=== PATIENT | male | born 1995 | race Caucasian/White ===

== ENCOUNTER → 2019-06-22 09:55 | Outpatient (CLI) | payer SELFPAY ==
[2019-06-22 11:50] LABS: Urine N gonorrhoeae NOT DETECTED
[2019-06-25 09:22] LABS: Urine Chlamydia DETECTED
== END ==
PROVIDERS: Visit Provider Physician Assistant
DX: R30.0 Dysuria (principal); R36.9 Urethral discharge, unspecified
CPT/HCPCS: 87491; 87591

== ENCOUNTER → 2020-01-18 08:41 | Outpatient (CLI) | payer SELFPAY | PROVIDERS: Visit Provider Physician Assistant | DX: R30.0 Dysuria (principal) | CPT/HCPCS: 87491; 87591 ==